=== PATIENT | female | born 1985 | race Caucasian/White ===

== ENCOUNTER → 2020-09-04 | Outpatient (CLI) | payer OTHER ==
--- NOTE | 2020-09-04 15:34 | CONS ---
CONSULTATION DATE OF SERVICE: 09/04/2020 This 35-year-old lady has been evaluated in the sleep center for possible obstructive sleep apnea-hypopnea syndrome. HISTORY OF PRESENT ILLNESS/SLEEP-WAKE EVALUATION: Patient's usual sleep schedule is from between 9 and 11 p.m. until 7 or 7:30 a.m. basically 7 days a week. Sometimes she has problems with falling asleep and has a TV set in the bedroom. She sleeps in different positions and she indicated that recently she has a tendency to go to the stomach position from the back and side positions. She snores, and she wakes up from sleep 2 times with nocturia. She also grinds her teeth and has awakenings with dry mouth and sweating. In the morning the patient wakes up tired, has episodes of irritability, depression, anxiety and sleepiness during the day. [place] Sleepiness Scale is significantly increased at 11. Usually she does not take any naps. She may take a nap, but rarely. PAST MEDICAL HISTORY: Positive for depression, anxiety, headaches and grinding teeth. Allergies. PAST SURGICAL HISTORY: Status post C-sections x2. MEDICATIONS: 1. Wellbutrin XL 300 mg once a day. 2. Zyrtec 10 mg once a day. 3. Venlafaxine 75 mg once a day. SOCIAL HISTORY: Negative for smoking. Alcohol consumption: Occasional. FAMILY HISTORY: Hypertension, hyperlipidemia, sleep apnea, thyroid problems, diabetes. REVIEW OF SYSTEMS: Awakenings from sleep, sleepiness during the day. PHYSICAL EXAMINATION: GENERAL: A pleasant lady without distress. VITAL SIGNS: BP 127/85, HR 92, RR 15, height 5 feet 6 inches, weight 224.7, temperature 98.8, oxygen saturation at room air 97%. BMI 36.1. HEENT: PERRLA, EOMI. Evaluation of oropharynx showed tongue protrudes midline. Low position of soft palate. Mallampati IV. NECK: Supple. No JVD. Thyroid is not palpable. Neck measures 16 inches in circumference. LUNGS: Clear to percussion and to auscultation. Good air exchange. No wheezing or rhonchi. HEART: S1, S2 regular. No murmurs, gallops or rubs. ABDOMEN: Slightly obese. EXTREMITIES: No clubbing or cyanosis. RN ONCOLOGY RESEARCH: Awake, alert, and oriented X3. Cranial nerves 2 to 7 intact. There is no fasciculation or atrophy. noted. No focal deficits observed. IMPRESSION: 1. Snoring, awakenings from sleep with nocturia, low position of the soft palate, Mallampati IV, wide neck, 16 inches in circumference, sleepiness, [place] Sleepiness Scale increased to 11; obstructive sleep apnea-hypopnea syndrome. 2. Obesity. BMI 36.1. 3. Depression. 4. Anxiety. 5. Headaches. 6. History of grinding teeth. 7. Allergies. 8. Status post C-sections x2. PLAN: 1. Home sleep apnea test to check the patient's breathing during sleep. 2. Following plan after reviewing results of sleep study. 3. Preferable position during sleep on the side. 4. No driving if patient feels any sleepiness. 5. I will see patient for follow up visit to explain results of testing and following plan. Thank you very much for referring this patient for consultation. Sincerely, Ryan Wilder MD, PhD, FAASM Diplomat of [employer] [employer] [facility] [place] MMODL / IJN: [id number] /
== END ==
LOC: MERGE 13:40 → SLEEP 14:07
PROVIDERS: ATTEND Internal Medicine
DX: G47.33 Obstructive sleep apnea (adult) (pediatric) (principal); E66.9 Obesity, unspecified; Z68.36 Body mass index [BMI] 36.0-36.9, adult; F32.9 Major depressive disorder, single episode, unspecified; F41.9 Anxiety disorder, unspecified; R51.9 Headache, unspecified; G47.63 Sleep related bruxism; R35.1 Nocturia; T78.40XA Allergy, unspecified, initial encounter; Z98.890 Other specified postprocedural states
CPT/HCPCS: 99211

== ENCOUNTER → 2020-11-20 | Outpatient (CLI) | payer OTHER ==
--- NOTE | 2020-11-20 21:50 | SFUN ---
SLEEP CENTER FOLLOW UP NOTE DATE OF SERVICE: 11/20/2020 85-year-old lady has been followed in Sleep Center for treatment for obstructive sleep apnea-hypopnea syndrome. Recently patient had a home sleep apnea test which documented mild obstructive sleep apnea-hypopnea syndrome. The patient has other medical problems including mood disorder, headaches, and was started on treatment with CPAP. Today is her first visit while she was started on treatment with CPAP. I discussed results of sleep study with patient in detail. I checked her CPAP unit. Patient feels better while using her CPAP equipment. [place] Sleepiness Scale today is 8. During the first visit, it was 11 before treatment. Pressure in the machine in the range 5 to 15, average pressure 11.5 cm of water, usage 19/30 nights. Average usage 5.9 hours per night. Leak is 10 L/minute. Apnea-hypopnea index is only 0.4, which is totally normal. CURRENT MEDICATIONS: Wellbutrin 300 mg once a day, Zyrtec 10 mg once a day. Venlafaxine 75 mg once a day. PHYSICAL EXAMINATION: GENERAL: Patient in no distress. BP 130/79, HR 88, RR 15, weight 227.2, temperature 97.5, oxygen saturation at room air 97%. HEENT: Oropharynx extremely low position of soft palate. Mallampati IV. NECK: Supple, no JVD. Thyroid is not palpable. LUNGS: Clear to percussion and to auscultation. Good air exchange. No wheezing or rhonchi. HEART: S1, S2 regular. No murmurs, gallops, or rubs. ABDOMEN: Slightly obese. Soft and nontender. Bowel sounds are present. No organomegaly appreciated. EXTREMITIES: No clubbing or cyanosis. CAD SPECIALIST: Awake, alert, and oriented X3. Cranial nerves 2 to 7 intact. There is no fasciculation or atrophy. noted. No focal deficits observed. IMPRESSION: 1. Obstructive sleep apnea-hypopnea syndrome. Patient demonstrated borderline compliance with treatment, benefitting from treatment. 2. Obesity. 3. Depression. 4. Anxiety. 5. Headaches. 6. History of grinding teeth. 7. Allergies. 8. Status post x2. PLAN: 1. I discussed with the patient in detail necessity to put machine slightly lower than position of her head. 2. She has to make her box of humidifier and tube dry after usage of it in the morning. 3. Patient will continue to use PAP equipment every night for the whole night. 4. Sleep hygiene with regular time in bed for at least 7-1/2 to 8 hours. 5. Precautions related to driving. No driving if feeling sleepiness. 6. I will maintain all necessary prescription for PAP supplies including mask, tube, filters. 7. Watching weight. 8. Follow-up visit in 6 months or earlier if patient has any problems. Ryan Wilder MD, PhD, FAASM Diplomat of [employer] [place] [employer] [place] [employer] [facility] [place] MMODL / IJN: [id number] /
== END ==
LOC: SLEEP 15:45
PROVIDERS: ATTEND Internal Medicine
DX: G47.33 Obstructive sleep apnea (adult) (pediatric) (principal); E66.9 Obesity, unspecified; I10 Essential (primary) hypertension; F32.9 Major depressive disorder, single episode, unspecified; F41.9 Anxiety disorder, unspecified; G47.63 Sleep related bruxism; T78.40XA Allergy, unspecified, initial encounter; Z98.890 Other specified postprocedural states; Z88.0 Allergy status to penicillin